=== PATIENT | male | born 1950 | race Caucasian/White ===

== ENCOUNTER 2021-10-31 15:22 | Emergency (ER) | payer MEDICARE ==
[~2021-10-31] VITALS: Ht 185.4 cm; Wt 94.0 kg
[2021-10-31 15:38] VITALS: BP 144/91
== END 2021-10-31 18:41 | disposition home or self-care (01) ==
LOC: ER 15:23
DX: M79.671 Pain in right foot (principal); M79.672 Pain in left foot
CPT/HCPCS: 73620; 99283

== ENCOUNTER 2025-03-10 09:31 | Outpatient (CLI) | payer MEDICARE ==
--- NOTE | 2025-03-10 10:31 | RADIOLOGY REPORT ---
CLINICAL HISTORY: DVTRCLI OF INTEST, LEFT SIDED ABD PAIN TECHNIQUE: CT of the abdomen and pelvis was performed without IV contrast. Oral contrast was administ ered. This exam was performed according to our departmental dose optimization program. Up-to-date CT equipment and radiation dose reduction techniques are utilized as appropriate. CTDI 26.6 DLP 1487.6 COMPARISON: None FINDINGS: Abdomen/Pelvis: The spleen, pancreas, adrenal glands, liver, left kidney, and bladder are grossly unremarkable. The prostate gland is mildly enlarged, measuring 4.8 cm in transverse diameter. The gallbladder is ab sent. Hypodense right renal lesions are incompletely characterized due to lack of IV contrast. There are a few punctate nonobstructing renal calculi. The abdominal aorta is normal in course and caliber. There are [id number] atherosclerotic calci fications. There is no free intraperitoneal air or fluid. There is no enlarged abdominal pelvic lymph node. There is no bowel wall thickening or dilatation. The appendix is normal. There is a moderate amount o f stool in the colon. There is a tiny fat containing umbilical hernia. Other: The imaged lower thorax demonstrates right-sided pacer wires. There are extensive cystic changes and associated bronchiectasis at both lower lobes, compatible with fibrosis /scarring, most likely from previous infectious/inflammatory process. No acute osseous abnormality is evident. Impression: No acute noncontrast CT abnormality of the abdomen / pelvis. No significant diverticulosis. Punctate nonobstructing right renal calculi. Constipation. Cholycystectomy. Fibrosis and/or scarring at the lung basis as described above.
== END 2025-03-10 23:59 | disposition home or self-care (01) ==
LOC: RAD 09:31
PROVIDERS: ATTEND Internal Medicine
DX: N20.0 Calculus of kidney (principal); R10.9 Unspecified abdominal pain; K59.09 Other constipation; K57.92 Diverticulitis of intestine, part unspecified, without perforation or abscess without bleeding; N40.0 Benign prostatic hyperplasia without lower urinary tract symptoms; Z90.49 Acquired absence of other specified parts of digestive tract
CPT/HCPCS: 74176